=== PATIENT | male | born 1990 | race Caucasian/White ===

== ENCOUNTER 2018-01-17 11:48 | Emergency (ER) | payer MEDICAID ==
[~2018-01-17] VITALS: Ht 180.3 cm; Wt 68.1 kg
[2018-01-17 11:52] VITALS: BP 119/81
[2018-01-17] MEDS ORDERED: BACITRACIN 0.9 GM PACKET OINTMENT TP ONE (12:45)
[2018-01-17] MEDS ORDERED: IBUPROFEN 400 MG TABLET PO ONE (12:45)
[2018-01-17] MEDS ORDERED: PERTUSS(ACELL),DIPH,TET VAC/PF 0.5 ML VIAL IM ONE (14:15)
== END 2018-01-17 14:24 | disposition left against medical advice (07) ==
LOC: EMS 11:50
DX: S90.511A Abrasion, right ankle, initial encounter (principal); J45.909 Unspecified asthma, uncomplicated; F12.90 Cannabis use, unspecified, uncomplicated; F17.210 Nicotine dependence, cigarettes, uncomplicated; W22.8XXA Striking against or struck by other objects, initial encounter; Y93.89 Activity, other specified; Y92.89 Other specified places as the place of occurrence of the external cause; Y99.8 Other external cause status
CPT/HCPCS: 99283; 99406